=== PATIENT | male | born 1950 | race Caucasian/White ===

== ENCOUNTER 2016-03-10 08:57 | Observation (INO) | payer MEDICARE, OTHER ==
[~2016-03-10] VITALS: Ht 160 cm; Wt 83.0 kg
[2016-03-10] VITALS (14 sets, daily range): BP systolic 90–164; BP diastolic 47–81; PULSE 59–80; RESP 18–20; TEMP 97.5; Ht 160 cm; Wt 83.0 kg
[~2016-03-10 08:57] MED LIST: ACET-141 PO; ALBU8.5H3 INH; ASPI-664 PO; ATOR40TA68 PO; DOCU-144 PO; ERGO500037 PO; HYDR-3671 PO; INSU100C SQ; LANT3I SC; LATA2.5D2 BOTH EYES; METO-429 PO; SEVE800T10 PO
--- NOTE | 2016-03-10 09:50 | RADRPT ---
PROCEDURE: XR Chest. CLINICAL INDICATION: Chest pain TECHNIQUE: Single portable view of the chest was obtained COMPARISON: 10/01/2015 FINDINGS: The heart and mediastinum are within normal limits. There is a right-sided Perma-Cath in place. There are mild bibasilar atelectatic changes. The lungs are otherwise clear. There is no pleural effusion or pneumothorax. RPTAT: AA IMPRESSION: Mild bibasilar atelectatic changes. .Deangelo Sunshine MD, Date Time Electronically viewed and signed by .Deangelo Sunshine MD, on 03/10/2016 09:49 .S/
[2016-03-10 10:12] LABS: BASOPHILS % 0.3 % (0.0-2.0); EOSINOPHILS # 0.3 10^3/ul (0.0-0.5); EOSINOPHILS % 2.9 % (0.0-7.0); HEMATOCRIT 27.4 % (42.0-52.0); HEMOGLOBIN 9.4 g/dl (14.0-18.0); LYMPHOCYTES # 1.4 10^3/ul (0.8-2.9); MEAN CORPUSCULAR HEMOGLOBIN 32.9 pg (29.0-33.0); MEAN CORPUSCULAR HGB CONC 34.2 g/dl (32.0-37.0); MONOCYTE # 0.4 10^3/ul (0.3-0.9); MONOCYTES % 4.2 % (0.0-11.0); NEUTROPHIL # 6.8 10^3/ul (1.6-7.5); NEUTROPHILS % 76.6 % (39.0-77.0); PLATELET COUNT 236 10^3/UL (140-440); RED BLOOD COUNT 2.85 10^6/ul (4.70-6.10); RED CELL DISTRIBUTION WIDTH 13.2 % (11.5-14.5); UNCORRECTED WBC 8.9 10^3/ul (4.8-10.8); WHITE BLOOD COUNT 8.9 10^3/ul (4.8-10.8)
[2016-03-10 10:14] LABS: CONDITION 1
[2016-03-10 10:23] LABS: ALBUMIN 3.6 g/dl (3.3-4.9)
[2016-03-10 10:24] LABS: POTASSIUM 4.6 mmol/L (3.5-5.1)
[2016-03-10 10:34] LABS: BILIRUBIN,INDIRECT 0.3 mg/dl (0-1.1); BILIRUBIN,TOTAL 0.3 mg/dl (0.2-1.3); CREATININE 4.79 mg/dl (0.61-1.24)
[2016-03-10 10:35] LABS: ALBUMIN/GLOBULIN RATIO 1.12; CALCIUM 8.6 mg/dl (8.4-10.2); TOTAL PROTEIN 6.8 g/dl (6.1-8.1)
[2016-03-10 10:36] LABS: TROPONIN-I 0.013 ng/ml (0.00-0.12)
[2016-03-10] MEDS ORDERED: INSULIN REGULAR, HUMAN 100 UNIT/1 ML 3ML VIAL SC ONE (11:00)
--- NOTE | 2016-03-10 11:09 | ERA ---
ER Documentation Chief Complaint Date/Time DATE: 03/10/16 TIME: 11:03 Chief Complaint dialysis m/w/f, last dialysis mon in [place], here for dialysis, access abi. HPI 65-year-old man referred here by PMD for dialysis. He has a long history of end -stage kidney disease and requires dialysis MWF, last dialysis was about 5 days ago. Patient denies fevers, chills, chest pain, or shortness of breath. Patient was recently in [place] and received dialysis while he was there. ROS All systems reviewed and are negative except as per history of present illness. Medications Home Meds Reported Medications Sevelamer Hcl* (Renagel*) 800 Mg Tablet, 1600 MG PO WITH MEALS, TAB 01/04/16 Latanoprost (Latanoprost) 2.5 Ml Drops, 1 DROP BOTH EYES QHS, #1 BOTTLE 01/04/16 Insulin Lispro (Humalog) 100 Unit/1 Ml Cartridge, 30 UNIT SQ AC MEALS 01/04/16 Insulin Glargine* (Lantus*) 100 Unit/Ml Soln, 50 UNIT SC QHS, #1 VIAL 01/04/16 Ergocalciferol (Vitamin D2) (VITAMIN D2) 50,000 Unit Capsule, 78325 UNIT PO FRIDAYS, CAP 01/04/16 Acetaminophen* (Acetaminophen*) 500 MG Extra Strength Tablet, 1000 MG PO TID, TAB 01/04/16 Docusate Sodium* (Colace*) 100 Mg Capsule, 200 MG PO BID, #30 CAP 10/01/15 Hydralazine Hcl* (Hydralazine Hcl*) 25 Mg Tab, 25 MG PO TID for 90 Days, #270 TAB 10/01/15 Albuterol Sulfate* (Proair HFA*) 8.5 Gm Hfa.aer.ad, 2 PUFF INH QID Y for WHEEZING AND SOB, #1 INHALER 04/22/15 Aspirin* (Aspirin* EC) 81 Mg Tablet.dr, 81 MG PO DAILY, TAB 04/22/15 Atorvastatin* (Atorvastatin*) 40 Mg Tablet, 40 MG PO HS, TAB 01/16/15 Metoprolol Tartrate* (Lopressor*) 50 Mg Tab, 50 MG PO BID, TAB 01/16/15 Allergies Allergies: Coded Allergies: No Known Allergies (Verified Allergy, Mild, 01/04/16) PMhx/Soc End-stage kidney disease hemodialysis dependent, hypertension, BPH, anemia, coronary artery disease, diabetes mellitus, left upper extremity arteriovenous fistula History of Surgery: Yes (dialysis shunt and AV fistula ) Anesthesia Reaction: No Hx Neurological Disorder: No Hx Respiratory Disorders: Yes (ASTHMA) Hx Cardiac Disorders: Yes (HTN HIGH CHOL, HTN) Hx Psychiatric Problems: No Hx Miscellaneous Medical Probl: Yes (ESRD) Hx Alcohol Use: Yes (a beer socially) Hx Substance Use: No Hx Tobacco Use: Yes (smoked for 15 years) Smoking Status: Former smoker Physical Exam Vitals Vital Signs Date Time Temp Pulse Resp B/P Pulse Ox O2 Delivery O2 Flow Rate FiO2 03/10/16 09:04 98.1 80 20 237/97 96 Physical Exam GENERAL: Well-developed, well-nourished, well-hydrated, in no apparent distress , looks nontoxic in appearance HEENT: Moist mucous membranes, pink conjunctiva, no cervical spine tenderness or step-off deformities, no goiter, no jaundice or icterus, extraocular movements intact without pain. No submandibular induration, and no pharyngeal erythema NEURO: Alert and oriented 3, cranial nerves II through XII intact bilaterally, pupils equal round reactive to light, no focal deficits or facial asymmetry, sensation intact distally Strength 5/5 in upper and lower extremities bilaterally CARDIAC: Regular rate and rhythm, no murmurs rubs or gallops LUNGS: Clear bilaterally no wheezing crackles or stridor ABDOMEN: Soft nontender, no guarding, no rigidity, no rebound, no psoas sign no obturator sign. Normoactive bowel sounds SKIN: Warm and dry to touch, no abrasions, contusions, or hematomas, no lacerations, no ecchymosis, no target lesions, and without ulcers EXTREMITIES: No clubbing cyanosis or edema, calves are bilaterally symmetrical, no Homans sign, no popliteal cord sign. Distal pulses equal and bilateral PSYCH: Normal affect without agitation or irritability Result Diagram: 03/10/1693703/10/16937 Results 24 hrs Laboratory Tests Test 03/10/16 09:38 Alanine Aminotransferase (ALT/SGPT) 20IU/L Albumin 3.6g/dl Albumin/Globulin Ratio 1.12 Alkaline Phosphatase 95IU/L Anion Gap 21 Aspartate Amino Transf (AST/SGOT) 19IU/L Basophils # 0.010^3/ul Basophils % 0.3% Blood Urea Nitrogen 62mg/dl Calcium Level 8.6mg/dl Carbon Dioxide Level 21mmol/L Chloride Level 101mmol/L Creatinine 4.79mg/dl Direct Bilirubin 0.00mg/dl Eosinophils # 0.310^3/ul Eosinophils % 2.9% Globulin 3.20g/dl Glucose Level 482mg/dl Hematocrit 27.4% Hemoglobin 9.4g/dl Indirect Bilirubin 0.3mg/dl Lipase 112U/L Lymphocytes # 1.410^3/ul Lymphocytes % 16.0% Mean Corpuscular Hemoglobin 32.9pg Mean Corpuscular Hemoglobin Concent 34.2g/dl Mean Corpuscular Volume 96.0fl Mean Platelet Volume 8.0fl Monocytes # 0.410^3/ul Monocytes % 4.2% Neutrophils # 6.810^3/ul Neutrophils % 76.6% Nucleated Red Blood Cells # 0.010^3/ul Nucleated Red Blood Cells % 0.0/100WBC Platelet Count 92328^3/UL Potassium Level 4.6mmol/L Red Blood Count 2.8510^6/ul Red Cell Distribution Width 13.2% Sodium Level 138mmol/L Total Bilirubin 0.3mg/dl Total Protein 6.8g/dl Troponin I 0.013ng/ml White Blood Count 8.910^3/ul Current Medications Medications (Trade) Dose Ordered Sig/Aleksandra Route PRN Reason Start Time Stop Time Status Last Admin Dose Admin Clonidine (Catapres) 0.1 mg ONCE ONCE PO 03/10/16 10:30 03/10/16 10:31 DC Insulin Human Regular (Humulin R) 12 unit ONCE ONCE SC 03/10/16 11:00 03/10/16 11:01 DC Procedures/MDM IV line was established patient was placed on ekg monitor tech rhythm strip revealed a sinus rhythm at about 70 bpm with upright P and T waves. Patient was afebrile. EKG performed, read by me: 69 bpm, normal sinus rhythm, normal axis, no acute ST segment changes, narrow QRS complex, with good R-wave progression in precordial leads. Chest X-ray 1V Interpreted by me: Soft Tissue: No acute abnormalities Bones: No acute abnormalities Mediastinum/Cardiac Silhouette/Lungs: Atelectasis at the bases, no acute infiltrates, no pneumothorax. CBC revealed mild anemia with a hemoglobin of 9.4, electrolytes revealed renal failure with an elevated BUN and creatinine. Troponin was negative. Liver function tests were normal. Glucose elevated at 482. For hypertension I administered clonidine 0.1 mg p.o. with good effect, patient also received regular insulin 12 units subcutaneous injection for hyperglycemia. I spoke to his PMD Dr. Lowe regarding the patient's presentation and symptomatology, he recommended inpatient management and hemodialysis. Departure Diagnosis: Primary Impression: End-stage renal disease needing dialysis Additional Impressions: Hypertension Qualified Code: I10 - Essential hypertension Hyperglycemia Condition: QUIQUE Nair MD Mar 10, 2016 11:08
[2016-03-10] MEDS ORDERED: NACL 0.9% 3 ML SYG IV SCH (13:00)
[2016-03-10] MEDS ORDERED: ALBUTEROL HFA 8 GM INHALER INH PRN (13:00)
[2016-03-10] MEDS ORDERED: DOCUSATE SODIUM 100 MG CAP PO PRN (13:00)
[2016-03-10] MEDS ORDERED: ONDANSETRON 4 MG INJ IV PRN (13:00)
[2016-03-10] MEDS ORDERED: ACETAMINOPHEN 325 MG TAB PO PRN (13:00)
--- NOTE | 2016-03-10 13:11 | QN ---
Documentation Comment [id number] ROSS PERES MD Mar 10, 2016 13:10
[2016-03-10] MEDS ORDERED: GLUCOSE GEL 15 GRAM TUBE PO PRN ×2 (13:30)
[2016-03-10] MEDS ORDERED: GLUCOSE GEL 15 GRAM TUBE BUCCAL PRN (13:30)
[2016-03-10] MEDS ORDERED: DEXTROSE 50% 50 ML SYRINGE IV PRN ×2 (13:30)
[2016-03-10] MEDS ORDERED: GLUCAGON 1 MG INJ IM PRN (13:30)
[2016-03-10 14:08] LABS: HAAIG REFLEX REFLEX FILED
[2016-03-10 15:12] LABS: HEPATITIS B CORE ANTIBODY NEGATIVE (NEGATIVE)
--- NOTE | 2016-03-10 15:38 | HP ---
DATE OF ADMISSION: 03/10/2016 TYPE OF CONSULTATION: Nephrology consult. HISTORY OF PRESENT ILLNESS: Mr. Oneal is a 65-year-old male with history of ESRD, hypertension, diabetes mellitus, AV fistula in the left upper extremity , and right chest Perm-A-Cath, went to [place], came back. The patient's last dialysis on Monday. The patient has no dialysis to go to since the patient is new now after a long vacation. PAST MEDICAL HISTORY: ESRD, hypertension, diabetes mellitus, anemia, history of atherosclerotic heart disease, BPH. The patient has a history of AV fistula site cellulitis. ALLERGY HISTORY: HE DENIES. FAMILY HISTORY: Denies. SOCIAL HISTORY: Denies. MEDICATION HISTORY: 1. Aspirin. 2. The patient is on Lipitor. 3. Docusate sodium. 4. Insulin. 5. Xalatan. 6. Metoprolol. 7. Renvela. 8. Albuterol. 9. Hydralazine. 10. Zofran. 11. Tylenol. REVIEW OF SYSTEMS: HEENT: Unremarkable. RESPIRATORY: Unremarkable. CARDIOVASCULAR: Complaining of no chest pain. ABDOMEN: . EXTREMITIES: Swelling. CENTRAL NERVOUS SYSTEM: Unremarkable. PHYSICAL EXAMINATION: GENERAL: The patient is awake, alert. VITAL SIGNS: Stable with pulse 80, blood pressure 168/80. HEAD: Atraumatic, normocephalic. Pupils equal, reactive to light. NECK: Supple. No JVD. LUNGS: Clear. CARDIOVASCULAR: S1, S2 normal. ABDOMEN: Soft, nontender. Bowel sounds present. No palpable mass or hepatosplenomegaly. No guarding, rebound tenderness. EXTREMITIES: There is no cyanosis, clubbing, or edema. CENTRAL NERVOUS SYSTEM: The patient is awake, alert with no focal deficit. LABORATORY DATA: Shows hematocrit 27.4, platelet count is 236. Sodium 130, potassium 4.6. The patient's blood sugar is 482. IMPRESSION: 1. Uncontrolled diabetes mellitus. 2. Hypertension. 3. Endstage renal disease. 4. Anemia. 5. Atherosclerotic heart disease. 6. Benign prostatic hypertrophy. PLAN: To control_. Diabetic renal diet. Sliding scale insulin. Hemodialysis. Will make arrangements for outpatient dialysis as well. Dictated By: ROSS GILBERT/RAKEL Conf#: [id number] DID#: [id number] [facility]
[2016-03-10] MEDS: ACETAMINOPHEN 500 MG TAB PO SCH ×2 (16:27→21:12)
[2016-03-10] MEDS: SEVELAMER 800 MG TAB PO SCH (17:15)
[2016-03-10] MEDS: INSULIN ASPART [NOVOLOG] 3 ML PEN SC SCH ×2 (17:16→21:15)
[2016-03-10] MEDS ORDERED: INSULIN ASPART [NOVOLOG] 3 ML PEN SC ONE (21:00)
[2016-03-10] MEDS ORDERED: ATORVASTATIN 40 MG TAB PO SCH (21:00)
[2016-03-10] MEDS ORDERED: INSULIN GLARGINE [LANtus] 3 ML PEN SC SCH (21:00)
[2016-03-10] MEDS ORDERED: LATANOPROST 0.005% 2.5 ML OPH BOTH EYES SCH (21:00)
[2016-03-10] MEDS: METOPROLOL 50 MG TAB PO SCH (21:11)
[2016-03-10] MEDS: DOCUSATE SODIUM 100 MG CAP PO SCH (21:12)
[2016-03-10] MEDS ORDERED: NIFEdipine (XL) 60 MG TAB PO ONE (22:30)
[2016-03-11] MEDS ORDERED: ACCUCHECK XX SCH (02:00)
[2016-03-11] MEDS: INSULIN ASPART [NOVOLOG] 3 ML PEN SC SCH ×3 (08:00→17:33)
[2016-03-11 08:16] VITALS: BP 126/57; RESP 20
[2016-03-11] MEDS ORDERED: ASPIRIN (EC) 81 MG TAB PO SCH (09:00)
[2016-03-11] MEDS ORDERED: INFLUENZA VIRUS VACCINE 0.5 ML (DISPENSING) IM* ONE (09:00)
[2016-03-11] MEDS: SEVELAMER 800 MG TAB PO SCH ×3 (09:14→17:31)
[2016-03-11] MEDS: ACETAMINOPHEN 500 MG TAB PO SCH ×2 (09:14→14:23)
[2016-03-11] MEDS: DOCUSATE SODIUM 100 MG CAP PO SCH (09:14)
[2016-03-11] MEDS: METOPROLOL 50 MG TAB PO SCH (09:15)
--- NOTE | 2016-03-11 14:18 | PDOCDIS ---
Discharge Instructions CONDITION Patient Condition: Stable HOME CARE INSTRUCTIONS: Special Diet: RENAL ACTIVITY: Activity Restrictions: Slowly Increase Activity FOLLOW UP/APPOINTMENTS Appointments f/u dr peres 2 wks ROSS PERES MD Mar 11, 2016 14:18
[2016-03-11] MEDS ORDERED: Accucheck XX (14:19)
--- NOTE | 2016-03-11 14:21 | PN ---
Date/Time of Note Date/Time of Note DATE: 03/11/16 TIME: 14:20 Assessment/Plan VTE Prophylaxis VTE Prophylaxis Intervention: other Lines/Catheters IV [facility] Saline Lock Assessment/Plan Chief Complaint/Hosp Course IMPRESSION: 1. Uncontrolled diabetes mellitus. non compliance wmeds 2. Hypertension. 3. Endstage renal disease. 4. Anemia. 5. Atherosclerotic heart disease. 6. Benign prostatic hypertrophy. plan hd Problems: Subjective 24 Hr Interval Summary Constitutional: no complaints Eyes: no complaints ENT: no complaints Respiratory: no complaints Cardiovascular: no complaints Exam/Review of Systems Vital Signs Vitals Vital Signs Date Time Temp Pulse Resp B/P Pulse Ox O2 Delivery O2 Flow Rate FiO2 03/11/16 08:16 126 20 126/57 98 03/10/16 19:45 98.2 03/10/16 16:18 Room Air Intake and Output 03/10/16 03/10/16 03/11/16 15:00 23:00 07:00 Intake Total 900 ml 480 ml Output Total 1900 ml 320 ml Balance -1000 ml 160 ml Exam Neck: supple Respiratory: clear to auscultation Cardiovascular: regular rate and rhythm Gastrointestinal: soft Musculoskeletal: nl extremities to inspection Results Result Diagram: 03/10/1638 03/10/16 0938 Results 24 hrs Laboratory Tests Test 03/10/16 17:14 03/10/16 20:11 03/11/16 02:03 03/11/16 07:51 Bedside Glucose 216 394 H 123 124 Test 03/11/16 11:32 Bedside Glucose 333 H Medications Medications Current Medications Acetaminophen (Tylenol Tab) 1,000 mg TID PO Last administered on 03/11/16 09: 14; Admin Dose 1,000 MG; Start 03/10/16 at 13:00 Albuterol (Ventolin Hfa) 2 puff QID PRN INH WHEEZING AND SOB; Start 03/10/16 at 13:00 Aspirin (Halfprin) 81 mg DAILY PO Last administered on 03/11/16 09:14; Admin Dose 81 MG; Start 03/11/16 at 09:00 Atorvastatin Calcium (Lipitor) 40 mg HS PO Last administered on 03/10/16 21:11 ; Admin Dose 40 MG; Start 03/10/16 at 21:00 Docusate Sodium (Colace) 200 mg BID PO Last administered on 03/11/16 09:14; Admin Dose 200 MG; Start 03/10/16 at 21:00 Hydralazine HCl (Apresoline) 25 mg TID PO Last administered on 03/11/16 09:15 ; Admin Dose 25 MG; Start 03/10/16 at 13:00 Insulin Glargine (Lantus) 50 unit QHS SC Last administered on 03/10/16 21:16; Admin Dose 50 UNIT; Start 03/10/16 at 21:00 Latanoprost (Xalatan) 1 drop QHS BOTH EYES Last administered on 03/10/16 21:12 ; Admin Dose 1 DROP; Start 03/10/16 at 21:00 Metoprolol Tartrate (Lopressor) 50 mg BID PO Last administered on 03/11/16 09: 15; Admin Dose 50 MG; Start 03/10/16 at 21:00 Ondansetron HCl (Zofran Inj) 4 mg Q6H PRN IV NAUSEA AND/OR VOMITING; Start 02/12 at 13:00 Acetaminophen (Tylenol Tab) 650 mg Q6H PRN PO PAIN LEVEL 1-3 OR FEVER; Start at 13:00 Docusate Sodium (Colace) 100 mg Q12H PRN PO CONSTIPATION; Start 03/10/16 at 13: 00 Diagnostic Test (Pha) (Accucheck) 1 ea 02 XX ; Start 03/11/16 at 02:00 Miscellaneous Information 1 ea NOTE XX ; Start 03/10/16 at 13:30 Glucose (Glutose) 15 gm Q15M PRN PO DECREASED GLUCOSE; Start 03/10/16 at 13:30 Glucose (Glutose) 22.5 gm Q15M PRN PO DECREASED GLUCOSE; Start 03/10/16 at 13: 30 Dextrose (D50w Syringe) 25 ml Q15M PRN IV DECREASED GLUCOSE; Start 03/10/16 at 13:30 Dextrose (D50w Syringe) 50 ml Q15M PRN IV DECREASED GLUCOSE; Start 03/10/16 at 13:30 Glucagon (Glucagen) 1 mg Q15M PRN IM DECREASED GLUCOSE; Start 03/10/16 at 13:30 Glucose (Glutose) 15 gm Q15M PRN BUCCAL DECREASED GLUCOSE; Start 03/10/16 at 13 :30 Clonidine (Catapres) 0.1 mg Q4H PRN PO SBP > 160; Start 03/10/16 at 22:00 ROSS PERES MD Mar 11, 2016 14:21
[2016-03-11] MEDS ORDERED: LIDOCAINE 1% (MDV) 20 ML INJ ONE (14:50)
--- NOTE | 2016-03-11 16:25 | RADRPT ---
PROCEDURE: Right internal jugular vein tunneled hemodialysis catheter removal. CLINICAL INDICATION: Right internal jugular vein tunneled dialysis catheter no longer required. TECHNIQUE: INTRAPROCEDURE MEDICATIONS: 1% lidocaine subcutaneous. The procedure, risks, benefits, complications and alternatives were explained to the patient. Consen t was obtained. A procedural pause was performed prior to the procedure. The patient's name, date of , and procedure to be performed were verified. The right anterior chest wall was prepped and draped. One percent lidocaine was used as local anesth esia at the site of the dialysis catheter. Fluoroscopic guidance was used. A 1 cm incision was made utilizing a 11 blade scalpel. Utilizing blunt dissection the tunneled catheter was mobilized. The catheter was then removed. Pressure was applied to the region of the internal jugular vein and the c hest wall at the site of the catheter until adequate hemostasis was obtained. A dressing was applie d. The patient tolerated procedure well. 0.1 minutes of fluoroscopy time was used. COMPARISON: None. FINDINGS: Successful removal of tunneled dialysis catheter. Preoperative image demonstrates the tunneled dialy sis catheter in position. Postoperative image demonstrates successful removal of the dialysis hol[address] ter. IMPRESSION: 1. Successful removal of right internal jugular vein tunneled dialysis catheter. RPTAT: QQ .Arjun Sepulveda MD, MD Date Time Electronically viewed and signed by .Arjun Sepulveda MD, on 03/11/2016 16:24 .R/
--- NOTE | 2016-03-12 19:19 | QN ---
Documentation Comment [id number] ROSS PERES MD Mar 12, 2016 19:19
--- NOTE | 2016-03-13 04:01 | DS ---
DATE OF ADMISSION: 03/10/2016 DATE OF DISCHARGE: 03/11/2016 HOSPITAL COURSE: The patient with ESRD, hypertension, diabetes mellitus was admitted with missing dialysis and uncontrolled diabetes mellitus. The patient has taken his insulin. Hemodialysis was done. Home medications were continued. The patient's hepatitis panel was negative. Chest x-ray was unremarkable. The patient will be going to dialysis center. DISCHARGE DIAGNOSES: 1. Uncontrolled diabetes mellitus due to missing insulin. 2. Hypertension. 3. Diabetes mellitus. 4. Atherosclerotic heart disease. 5. Dyslipidemia. DISCHARGE MEDICATIONS: The patient is to continue home medication to continue on 1. Tylenol. 2. Albuterol. 3. Aspirin. 4. Lipitor. 5. Docusate sodium. 6. Vitamin D3. 7. Hydralazine. 8. Insulin 50 units. Also, the patient is on 9. Humalog. 10. Eyedrops. 11. Metoprolol. 12. Renvela. FOLLOWUP: The patient is to follow up as an outpatient. CONDITION: The patient is stable at the time of discharge. DIET: Diabetic and also renal diet. Dictated By: ROSS GILBERT/RAKEL Conf#: [id number] DID#: [id number] LONI
== END 2016-03-11 19:23 | disposition home or self-care (01) ==
LOC: E/R 08:57 → INTOOBSV 10:41 → PP2 10:41
PROVIDERS: ADMIT Internal Medicine Nephrology; ATTEND Internal Medicine Nephrology
DX: I12.0 Hypertensive chronic kidney disease with stage 5 chronic kidney disease or end stage renal disease (principal); N18.6 End stage renal disease; Z99.2 Dependence on renal dialysis; E11.22 Type 2 diabetes mellitus with diabetic chronic kidney disease; E11.65 Type 2 diabetes mellitus with hyperglycemia; Z79.4 Long term (current) use of insulin; I25.10 Atherosclerotic heart disease of native coronary artery without angina pectoris; N40.0 Benign prostatic hyperplasia without lower urinary tract symptoms; D64.9 Anemia, unspecified; E78.5 Hyperlipidemia, unspecified; Z79.82 Long term (current) use of aspirin; Z23 Encounter for immunization
CPT/HCPCS: 36415; 36590; 71010; 80053; 82962; 83690; 84484; 85025; 86704; 86709; 86803; 87081; 87340; 90686; 90935; 93005; 96372; 99285; G0378; J1815; 99217

== ENCOUNTER 2016-05-09 11:42 | Emergency (ER) | payer MEDICARE, OTHER ==
[~2016-05-09] VITALS: Wt 85.0 kg
[~2016-05-09 11:42] MED LIST changes: +Accucheck XX
[2016-05-09] MEDS ORDERED: D-ME473S18 PO (14:13)
[2016-05-09] MEDS ORDERED: AZIT250T94 PO (14:13)
--- NOTE | 2016-05-09 14:15 | ERD ---
ER Documentation Chief Complaint Date/Time DATE: 05/09/16 TIME: 14:14 Chief Complaint 10 DAYS OF COUGH AND CONGESTION NO FEVERS NO SIGNS OF SOB. HPI This 66-year-old male presents with a productive cough and congestion for last 10 days. He denies any fevers, chest pain, shortness of breath. He has a history of reactive airway disease and is using an inhaler at home. There is no history of vomiting or abdominal pain. ROS All systems reviewed and are negative except as per history of present illness. Medications Home Meds Active Scripts Dextromethorphan Hb-Promethazine Hcl (Promethazine DM Syrup) 473 Ml Syrup, 5 ML PO Q6H Y for COUGH, #4 OZ Prov:JG DACOSTA MD 05/09/16 Azithromycin* (Zithromax*) 250 Mg Tablet, 250 MG PO .ZPACK DIRECTED, #6 TAB TAKE 500 MG (2 TABS) THE FIRST DAY THEN 250 MG (1 TAB) DAYS 2-5 Prov:JG DACOSTA MD 05/09/16 [Accucheck] 1 EA EA No Conflict Check, 1 EA XX 02 for 28 Days Prov:ROSS PERES MD 03/11/16 Reported Medications Sevelamer Hcl* (Renagel*) 800 Mg Tablet, 1600 MG PO WITH MEALS, TAB 01/04/16 Latanoprost (Latanoprost) 2.5 Ml Drops, 1 DROP BOTH EYES QHS, #1 BOTTLE 01/04/16 Insulin Lispro (Humalog) 100 Unit/1 Ml Cartridge, 30 UNIT SQ AC MEALS 01/04/16 Insulin Glargine* (Lantus*) 100 Unit/Ml Soln, 50 UNIT SC QHS, #1 VIAL 01/04/16 Ergocalciferol (Vitamin D2) (VITAMIN D2) 50,000 Unit Capsule, 41539 UNIT PO FRIDAYS, CAP 01/04/16 Acetaminophen* (Acetaminophen*) 500 MG Extra Strength Tablet, 1000 MG PO TID, TAB 01/04/16 Docusate Sodium* (Colace*) 100 Mg Capsule, 200 MG PO BID, #30 CAP 10/01/15 Hydralazine Hcl* (Hydralazine Hcl*) 25 Mg Tab, 25 MG PO TID for 90 Days, #270 TAB 8/4/16 Albuterol Sulfate* (Proair HFA*) 8.5 Gm Hfa.aer.ad, 2 PUFF INH QID Y for WHEEZING AND SOB, #1 INHALER 04/22/15 Aspirin* (Aspirin* EC) 81 Mg Tablet.dr, 81 MG PO DAILY, TAB 04/22/15 Atorvastatin* (Atorvastatin*) 40 Mg Tablet, 40 MG PO HS, TAB 01/16/15 Metoprolol Tartrate* (Lopressor*) 50 Mg Tab, 50 MG PO BID, TAB 01/16/15 Allergies Allergies: Coded Allergies: No Known Allergies (Verified Allergy, Mild, 05/09/16) PMhx/Soc History of Surgery: Yes (LEFT FULL TOES AMPUTATION ) Anesthesia Reaction: No Hx Neurological Disorder: No Hx Respiratory Disorders: No Hx Cardiac Disorders: Yes (HTN) Hx Psychiatric Problems: No Hx Miscellaneous Medical Probl: Yes (DIALYSIS + LEFT UPPER ARM , DM) Hx Alcohol Use: No Hx Substance Use: No Hx Tobacco Use: Yes Smoking Status: Former smoker Physical Exam Vitals Vital Signs Date Time Temp Pulse Resp B/P Pulse Ox O2 Delivery O2 Flow Rate FiO2 05/09/16 11:45 98.9 79 20 114/58 98 Physical Exam Alert, [id number] const: [] Head: Atraumatic Eyes: Normal Conjunctiva ENT: Normal External Ears, Nose and Mouth. Neck: Full range of motion..~ No meningismus. Resp: Clear to auscultation bilaterally. No appreciable rales or retractions. No significant wheezing appreciated. Cardio: Regular rate and rhythm, no murmurs Abd: Soft, non tender, non distended. Normal bowel sounds Skin: No petechiae or rashes Back: No midline or flank tenderness Ext: No cyanosis, or edema Neur: Awake and alert Psych: Normal Mood and Affect Procedures/MDM Patient presents with a productive cough for last 10 days. Given the duration will be treated with Zithromax and promethazine. Signs and symptoms consistent with pneumonia, hypoxemia, respiratory distress, but patient to recheck for new or worsening symptoms. The patient was stable with no new complaints during the ER course. Clinically, there is no current evidence to suggest meningitis, sepsis, acute abdomen, pneumonia, acute coronary syndrome, pulmonary embolism, or any other emergent condition appearing to require further evaluation or hospitalization. The patient should certainly return for any new or worsening symptoms per the aftercare instructions. They should otherwise follow-up with her primary care doctor for reevaluation this week. Departure Diagnosis: Primary Impression: Cough Condition: Stable Patient Instructions: Acute Bronchitis Additional Instructions: Cheque otro vez con [place] doctor primario en el proximo avila or regresa para mas o nueva simptomas. JG DACOSTA MD May 09, 2016 14:15
[2016-05-09 14:55] VITALS: BP 141/65; PULSE 69; RESP 16
== END 2016-05-09 14:56 | disposition home or self-care (01) ==
LOC: FTE 11:42
DX: R05 Cough (principal); I10 Essential (primary) hypertension; E11.9 Type 2 diabetes mellitus without complications; Z79.4 Long term (current) use of insulin; Z79.82 Long term (current) use of aspirin; Z87.891 Personal history of nicotine dependence
CPT/HCPCS: 99284

== ENCOUNTER 2017-04-07 03:58 | Inpatient (IN) | END 2017-04-13 19:53 | disposition home health service (06) | DRG 252 ==